=== PATIENT | male | born 1960 | race Caucasian/White ===

== ENCOUNTER 2017-10-31 09:48 | Day surgery (SDC) | payer OTHER ==
[~2017-10-31] VITALS: Ht 182.9 cm; Wt 92.5 kg
[2017-10-31] MEDS ORDERED: BALANCED SALT IRRIG SOLN COMB1 500ML OP NR (11:00)
[2017-10-31] MEDS ORDERED: TROPICAMIDE 1% OPHTH DROPS 15ML RIGHTEYE ONE (11:00)
[2017-10-31] MEDS ORDERED: PHENYLEPHRINE HCL 10% OPHTH DROPS 5ML RIGHTEYE ONE (11:00)
[2017-10-31] MEDS ORDERED: CYCLOPENTOLATE HCL 1% OPHTH DROPS 2ML RIGHTEYE ONE (11:00)
[2017-10-31] MEDS ORDERED: LACTATED RINGERS 1,000 ML IV SCH (11:50)
[2017-10-31] MEDS ORDERED: HYALURONATE SODIUM 14 MG/ML 0.85ML SYRINGE IO ONE (12:08)
[2017-10-31] MEDS ORDERED: FENTANYL CITRATE/PF 50MCG/ML 2ML VIAL ONE (12:27)
[2017-10-31] MEDS ORDERED: MIDAZOLAM HCL 2 MG/2 ML VIAL ONE (12:27)
[2017-10-31] MEDS ORDERED: PROPOFOL 200MG/20ML VIAL IV ONE (12:27)
[2017-10-31] MEDS ORDERED: LIDOCAINE HCL/PF 1% 10 MG/ML 5ML VIAL ONE (12:33)
[2017-10-31] MEDS ORDERED: CEFAZOLIN SODIUM 1000MG/VIAL ONE (12:33)
[2017-10-31] MEDS ORDERED: MEPERIDINE HCL/PF 25MG/ML CPJ IV PRN (12:45)
[2017-10-31] MEDS ORDERED: HYDROMORPHONE HCL/PF 2MG/ML CPJ IV PRN (12:45)
[2017-10-31] MEDS ORDERED: ONDANSETRON HCL 4MG/2ML VIAL IV PRN (12:45)
[2017-10-31] MEDS ORDERED: LABETALOL 5MG/ML SYR 20 MG/4 ML SYRINGE IV PRN (12:45)
[2017-10-31] MEDS ORDERED: FISH PO (13:01)
[2017-10-31] MEDS ORDERED: ASPI-1159 PO (13:01)
[2017-10-31] MEDS ORDERED: NEO/POLYMYX B SULF/DEXAMETH OPHTH OINT 3.5GM ONE (14:16)
[2017-10-31] MEDS ORDERED: PREDNISOLONE ACETATE 1% OPHTH DROPS 1ML ONE (14:16)
[2017-10-31] MEDS ORDERED: TETRACAINE 0.5% OPHTH DROPS 4ML ONE (14:16)
[2017-10-31] MEDS ORDERED: CIPROFLOXACIN 0.3% OPHTH SOLN 2.5ML ONE (14:16)
[2017-10-31] MEDS ORDERED: LIDOCAINE HCL 2%/EPINEPHRINE 1:100,000 20 ML VIAL INFIL ONE (14:16)
[2017-10-31] MEDS ORDERED: BALANCED SALT IRRIG SOLN 15ML ONE (14:16)
[2017-10-31] MEDS ORDERED: LIDOCAINE HCL/PF 2% 20 MG/ML 10ML VIAL ONE (14:16)
[2017-10-31] MEDS ORDERED: BUPIVACAINE HCL/PF 0.75% (7.5MG/ML) 10ML ONE (14:16)
== END 2017-10-31 14:15 | disposition home or self-care (01) ==
LOC: OR 09:48
PROVIDERS: ATTEND Ophthalmology
DX: H25.011 Cortical age-related cataract, right eye (principal); F41.9 Anxiety disorder, unspecified; E78.5 Hyperlipidemia, unspecified; Z91.013 Allergy to seafood; Z79.82 Long term (current) use of aspirin; Z80.8 Family history of malignant neoplasm of other organs or systems
CPT/HCPCS: 66984; J0690; J2250; J3010; J3490; J7120; V2632; J2704